=== PATIENT | male | born 1985 | race Two or more races ===

== ENCOUNTER 2019-02-16 12:33 | Emergency (ER) | payer MEDICAID ==
[~2019-02-16] VITALS: Ht 182.9 cm; Wt 113.4 kg
[2019-02-16 12:37] VITALS: BP 144/91
[2019-02-16] MEDS ORDERED: NKM (12:39)
--- NOTE | 2019-02-16 12:42 | NUR ---
ED Nurse Note: Pt walked in due to right inner thigh pain after working out. No apparent swelling or deformity. AAO x4, and ambulates with steady gait.
[2019-02-16] MEDS ORDERED: Ketorolac 30mg Inj IM ONE (13:30)
--- NOTE | 2019-02-16 13:35 | Emergency Room Report ---
History of Present Illness General Chief Complaint: Pain Source: Patient Present Illness HPI 33 YO Male presents to the ED c/o 01/25 in severity progressive right posterior thigh pain after working out strenuously at the gym doing legs. Pt. denies acute trauma or fall. He reports he has tried Ice and rest with no relief. pt. is able to bear weight. Pain is severely exacerbated upon palpation or sitting/ anything that applies pressure in that area. Pt. denies bruises. Denies back pain. Denies paresthesias. Allergies: Coded Allergies: No Known Allergies (Unverified , 02/16/19) Patient History Past Medical History: see triage record Past Surgical History: none Pertinent Family History: none Reviewed Nursing Documentation: PMH: Agreed; PSxH: Agreed Nursing Documentation-PMH Past Medical History: No Stated History Review of Systems All Other Systems: negative except mentioned in HPI Physical Exam Vital Signs Date Time Temp Pulse Resp B/P (MAP) Pulse Ox O2 Delivery O2 Flow Rate FiO2 02/16/19 12:37 97.5 99 19 144/91 98 Room Air Sp02 EP Interpretation: reviewed, normal General Appearance: alert, GCS 15, non-toxic, mild distress Head: normocephalic, atraumatic Eyes: bilateral eye normal inspection, bilateral eye PERRL ENT: hearing grossly normal, normal voice Neck: full range of motion Respiratory: lungs clear, normal breath sounds, speaking full sentences Cardiovascular #1: regular rate, rhythm, normal capillary refill Musculoskeletal: back normal, gait/station normal - mild compensation, normal range of motion, tender - the medial aspect of the right posterior thigh. no bruises. no bony ttp. FROM of the leg. able to flex and extend the affected leg. Neurologic: alert, oriented x3, responsive, motor strength/tone normal, sensory intact, speech normal, grossly normal Psychiatric: judgement/insight normal Skin: normal color, normal inspection Medical Decision Making PA Attestation Dr. Rosenberg is my supervising Physician whom patient management has been discussed with. Diagnostic Impression: Primary Impression: Hamstring muscle strain Qualified Codes: S76.311A - Strain of muscle, fascia and tendon of the posterior muscle group at thigh level, right thigh, initial encounter ER Course 33 YO Male presents to the ED c/o 01/25 in severity progressive right posterior thigh pain after working out strenuously at the gym doing legs. Pt. denies acute trauma or fall. He reports he has tried Ice and rest with no relief. pt. is able to bear weight. Pain is severely exacerbated upon palpation or sitting/ anything that applies pressure in that area. Pt. denies bruises. Denies back pain. Denies paresthesias. Ddx considered but are not limited to Fracture, dislocation, contusion, Sprain/ Strain/Spasm, Vital signs: are WNL, pt. is afebrile H&PE are most consistent with musculoskeletal injury will perform imaging to r/ o fractures/dislocations. ORDERS: - X-ray not required, no bony tenderness ED INTERVENTIONS: - Toradol IM 30mg --Patient is provided with crutches and instructed on their use DISCHARGE: At this time pt. is stable for d/c to home. Will provide printed patient care instructions, and any necessary prescriptions. Care plan and follow up instructions have been discussed with the patient prior to discharge. Last Vital Signs Date Time Temp Pulse Resp B/P (MAP) Pulse Ox O2 Delivery O2 Flow Rate FiO2 02/16/19 12:37 97.5 99 19 144/91 (108) 98 Room Air Status: improved Disposition: HOME, SELF-CARE Condition: Stable Scripts Acetaminophen With Codeine (T#3) (TYLENOL #3 TAB*) Y Tab 1 TAB ORAL Q6H PRN for For Pain, #6 TAB Prov: Destiny Bland 02/16/19 Diclofenac Sodium (VOLTAREN) 100 Gm Gel..gram. 1 APPLIC TP THREE TIMES A WEEK, #100 GM Prov: Destiny Bland 02/16/19 Ibuprofen* (MOTRIN*) 600 Mg Tablet 600 MG ORAL THREE TIMES A DAY, #30 TAB 0 Refills Prov: Destiny Bland 02/16/19 Departure Forms: Return to Work Return to Work Date: Feb 21, 2019 Work Restrictions: No Heavy Lifting, No Prolonged Standing Other Restrictions: May return Sooner if Symptoms have resolved. Return to Full Activity: Feb 21, 2019 Patient Instructions: Muscle Strain Additional Instructions: Take medications as directed. Follow up with an [facility] [employer] in 3-5 days, even if your symptoms have resolved. If symptoms persist MRI may be required at the discretion of your PCP or Ortho Specialist. --Please review list of primary care clinics, if you do not already have a primary care provider who can give you an Orthopedic Referral. Return sooner to ED if new symptoms occur, or current symptoms become worse. Do not drink alcohol, drive, or operate heavy machinery while taking Tylenol # 3 as this may cause drowsiness. - Please note that this Emergency Department Report was dictated using [employer] mgr technology software, occasionally this can lead to erroneous entry secondary to interpretation by the dictation equipment. Destiny Bland Feb 16, 2019 13:35
[2019-02-16] MEDS ORDERED: IBUPROFEN600 MG ORAL (13:37)
[2019-02-16] MEDS ORDERED: VOLTAREN100 G1 TP (13:37)
[2019-02-16] MEDS ORDERED: ACETAMINOPHEN-1 EAC1 ORAL (13:37)
[2019-02-16 14:00] VITALS: BP 137/80
--- NOTE | 2019-02-16 14:00 | NUR ---
ER DISCHARGE NOTE: Patient is cleared to be discharged per PA, pt is aox4, on room air, with stable vital signs. pt was given dc and prescription instructions, pt was able to verbalize understanding, pt id band removed. pt is able to ambulate with steady gait. pt took all belongings.
== END 2019-02-16 14:00 | disposition home or self-care (01) ==
LOC: EMR 13:47
DX: S76.311A Strain of muscle, fascia and tendon of the posterior muscle group at thigh level, right thigh, initial encounter (principal); X50.9XXA Other and unspecified overexertion or strenuous movements or postures, initial encounter; Y93.B9 Activity, other involving muscle strengthening exercises; Y92.39 Other specified sports and athletic area as the place of occurrence of the external cause
CPT/HCPCS: 96372; 99283; J1885